=== PATIENT | female | born 1965 | race Caucasian/White ===

== ENCOUNTER 2017-02-16 11:43 | Emergency (ER) | payer OTHER ==
[~2017-02-16] VITALS: Ht 142.2 cm; Wt 62.1 kg
[~2017-02-16 11:43] MED LIST: ATARAX,VISTARIL50 MG PO; CITALOPRAM20 MG PO; COMBIVENT1 ARO IH; FERROUS SULFAT325 MG PO; MEDROL DOSEPAK4 MG PO; METHOCARBAMOL750 M1 PO; NATURE'S BLEND F1 MG PO; ONDANSETRON HYDR4 M1 PO; PERCOCET 325 MG1 TA2 PO; PRILOSEC20 MG PO; SEPTRA DS 800 M1 TAB PO; THERA TABS1 TAB PO; VITAMIN B-11 TAB PO; ZITHROMAX Z PA250 MG PO
[2017-02-16 12:07] LABS: BASO # 0.1 10*3/uL (0.0-0.1); BASO % 0.8 % (0.0-1.0); EOS # 0.4 10*3/uL (0.0-0.4); EOS % 4.5 % (1.0-4.0); HEMOGLOBIN 12.5 g/dl (12.0-16.0); LYMPH # 1.9 10*3/uL (1.3-4.4); LYMPH % 24.2 % (27.0-41.0); MEAN CELL VOLUME 84.6 fl (81.0-99.0); MEAN CORPUSCULAR HGB 27.8 pg (27.0-31.0); MEAN CORPUSCULAR HGB CONC 32.9 g/dl (33.0-37.0); MEAN PLATELET VOLUME 12.8 fl (9.6-12.3); MONO # 0.6 10*3/uL (0.1-1.0); MONO % 7.1 % (3.0-9.0); NEUT % 63.3 % (47.0-73.0); PLATELET COUNT AUTOMATED 214 10*3/uL (130-400); RED BLOOD COUNT 4.49 10*6/uL (4.10-5.10); RED CELL DISTRI WIDTH 13.1 % (0-14.5); WHITE BLOOD COUNT 7.9 10*3/uL (4.8-10.8)
[2017-02-16 12:21] LABS: BUN 13 mg/dl (7-24); CARBON DIOXIDE 28 mmol/L (21-32); CHLORIDE 102 mmol/L (98-107); EST GLOM FILT AFRICAN AMERICAN > 60 ml/min; GLUCOSE 89 mg/dL (65-99); POTASSIUM 4.1 mmol/L (3.5-5.1); SODIUM 139 mmol/L (136-145)
[2017-02-16 12:34] LABS: BILIRUBIN NEGATIVE (NEGATIVE); BLOOD TRACE-INTACT (NEGATIVE); CLARITY CLEAR (CLEAR); COLOR YELLOW (YELLOW); GLUCOSE NEGATIVE (NEGATIVE); KETONE NEGATIVE (NEGATIVE); LEUKO ESTERASE NEGATIVE (NEGATIVE); NITRITE NEGATIVE (NEGATIVE); PH 5.5 (5.0-9.0); PROTEIN NEGATIVE (NEGATIVE); UROBILINOGEN 0.2 E.U./dl (0.2-1.0)
[2017-02-16 12:48] LABS: BACTERIA TRACE; URINE REFLEX COMMENT NO (NO)
[2017-02-16 13:20] LABS: ALBUMIN 4.2 gm/dl (3.1-4.5); ALKALINE PHOSPHATASE 79 U/L (45-117); BILIRUBIN, DIRECT < 0.1 mg/dL (0.0-0.2); BILIRUBIN, TOTAL 0.4 mg/dl (0.2-1.0); SGOT/AST 13 IU/L (3-35); SGPT/ALT 24 U/L (12-78); TOTAL PROTEIN 7.7 gm/dL (6.4-8.2)
[2017-02-16] MEDS ORDERED: KETOROLAC10 MG PO (14:51)
== END 2017-02-16 14:46 | disposition home or self-care (01) ==
LOC: ED 11:43
PROVIDERS: Emergency Medicine; Registered Nurse
DX: R10.11 Right upper quadrant pain (principal); R11.0 Nausea; F12.10 Cannabis abuse, uncomplicated; Z88.0 Allergy status to penicillin; Z91.018 Allergy to other foods

== ENCOUNTER 2020-07-26 13:37 | Emergency (ER) | payer OTHER ==
[~2020-07-26] VITALS: Ht 152.4 cm; Wt 61.2 kg
[~2020-07-26 13:37] MED LIST changes: +KETOROLAC10 MG PO
[2020-07-26 14:06] LABS: BASO # 0.1 10*3/uL (0.0-0.1); EOS # 0.2 10*3/uL (0.0-0.4); EOS % 2.1 % (1.0-4.0); HEMATOCRIT 40.7 % (37.0-47.0); LYMPH % 24.7 % (27.0-41.0); MEAN CELL VOLUME 85.7 fl (81.0-99.0); MEAN CORPUSCULAR HGB 29.3 pg (27.0-31.0); MEAN CORPUSCULAR HGB CONC 34.2 g/dl (33.0-37.0); MEAN PLATELET VOLUME 11.9 fl (9.6-12.3); MONO # 0.8 10*3/uL (0.1-1.0); MONO % 10.1 % (3.0-9.0); NEUT % 60.9 % (47.0-73.0); PLATELET COUNT AUTOMATED 251 10*3/uL (130-400); RED BLOOD COUNT 4.75 10*6/uL (4.10-5.10); RED CELL DISTRI WIDTH 12.6 % (0-14.5); WHITE BLOOD COUNT 8.3 10*3/uL (4.8-10.8)
[2020-07-26 14:21] LABS: ALBUMIN 4.1 gm/dl (3.1-4.5); ALKALINE PHOSPHATASE 93 U/L (45-117); BUN 20 mg/dl (7-24); CHLORIDE 105 mmol/L (98-107); CREATININE 0.95 mg/dL (0.55-1.02); SGOT/AST 110 IU/L (3-35); SGPT/ALT 74 U/L (12-78); SODIUM 137 mmol/L (136-145); TOTAL PROTEIN 7.8 gm/dL (6.4-8.2)
[2020-07-26 14:29] LABS: ACETAMINOPHEN (TYLENOL) < 5.0 ug/ml (10-30); ETHYL ALCOHOL < 3.0 mg/dl (<3)
[2020-07-26 16:30] LABS: BILIRUBIN Negative (Negative); BLOOD Negative (Negative); CLARITY Clear (Clear); COLOR Yellow (Yellow); GLUCOSE Negative (Negative); KETONE 1+ (Negative); LEUKO ESTERASE 1+ (Negative); NITRITE Negative (Negative); PH 5.5 (4.5-8.0)
[2020-07-26 16:38] LABS: URINE AMPHETAMINES > 1000 (1000ng/ml); URINE BARBITURATES < 200 (200ng/ml); URINE BENZODIAZEPINES < 200 (200ng/ml); URINE CANNABINOIDS (THC) > 50 (50ng/ml); URINE COCAINE < 300 (300ng/ml); URINE METHADONE < 300 (300ng/ml); URINE OPIATES < 300 (300ng/ml)
[2020-07-26 16:39] LABS: URINE PHENCYCLIDINE < 25 (25ng/ml)
[2020-07-26 16:56] LABS: BACTERIA TRACE; EPITHELIAL CELLS 0-2; HYALINE CAST 0-2; MUCOUS 1+
[2020-07-28 05:47] LABS: CHLORIDE 115 mmol/L (98-107); CPK 903 U/L (26-192); CREATININE 0.66 mg/dL (0.55-1.02); POTASSIUM 3.5 mmol/L (3.5-5.1); SODIUM 144 mmol/L (136-145)
[2020-07-28 05:49] LABS: BUN 10 mg/dl (7-24)
--- NOTE | 2020-07-28 08:33 | NUR ---
TYLENOL 975MG PO GIVEN AT THIS TIME PER PT REQUEST FOR C/O HEADACHE RATED LEVEL 8/10. LIGHTS DIMMED. WILL MONITOR FOR EFFECT.
== END 2020-07-28 09:47 | disposition home or self-care (01) ==
LOC: ED 13:37
PROVIDERS: Internal Medicine; Physician Assistant
DX: F31.9 Bipolar disorder, unspecified (principal); F15.10 Other stimulant abuse, uncomplicated; F20.9 Schizophrenia, unspecified; F41.9 Anxiety disorder, unspecified; R44.1 Visual hallucinations; Z20.828 Contact with and (suspected) exposure to other viral communicable diseases; Z88.0 Allergy status to penicillin; Z91.018 Allergy to other foods; Z79.899 Other long term (current) drug therapy; Z98.51 Tubal ligation status

== ENCOUNTER 2021-07-18 12:41 | Inpatient (IN) | payer OTHER ==
[2021-07-18] VITALS (7 sets, daily range): BP systolic 80–127; BP diastolic 39–95
[~2021-07-18] VITALS: Ht 142.2 cm; Wt 60.4 kg
[2021-07-18 15:07] LABS: URINE AMPHETAMINES < 1000 (1000ng/ml); URINE BARBITURATES < 200 (200ng/ml); URINE BENZODIAZEPINES < 200 (200ng/ml); URINE CANNABINOIDS (THC) < 50 (50ng/ml); URINE COCAINE < 300 (300ng/ml); URINE METHADONE < 300 (300ng/ml); URINE OPIATES < 300 (300ng/ml)
[2021-07-18 15:11] LABS: URINE PHENCYCLIDINE < 25 (25ng/ml)
[2021-07-18 15:14] LABS: BASO # 0.1 10*3/uL (0.0-0.1); BASO % 0.7 % (0.0-1.0); EOS # 0.4 10*3/uL (0.0-0.4); HEMATOCRIT 41.6 % (37.0-47.0); LYMPH # 1.8 10*3/uL (1.3-4.4); LYMPH % 25.8 % (27.0-41.0); MEAN CELL VOLUME 88.9 fl (81.0-99.0); MEAN CORPUSCULAR HGB 29.3 pg (27.0-31.0); MEAN CORPUSCULAR HGB CONC 32.9 g/dl (33.0-37.0); MEAN PLATELET VOLUME 12.1 fl (9.6-12.3); MONO # 0.4 10*3/uL (0.1-1.0); MONO % 5.8 % (3.0-9.0); NEUT # 4.5 10*3/uL (2.3-7.9); NEUT % 62.6 % (47.0-73.0); PLATELET COUNT AUTOMATED 229 10*3/uL (130-400); RED BLOOD COUNT 4.68 10*6/uL (4.10-5.10); RED CELL DISTRI WIDTH 12.6 % (0-14.5); WHITE BLOOD COUNT 7.1 10*3/uL (4.8-10.8)
[2021-07-18 15:29] LABS: ACETAMINOPHEN (TYLENOL) < 5.0 ug/ml (10-30); ALBUMIN 4.1 gm/dl (3.1-4.5); ALKALINE PHOSPHATASE 95 U/L (45-117); BUN 19 mg/dl (7-24); CHLORIDE 108 mmol/L (98-107); CREATININE 1.43 mg/dL (0.55-1.02); ETHYL ALCOHOL < 3.0 mg/dl (<3); POTASSIUM 3.9 mmol/L (3.5-5.1); SGOT/AST 16 IU/L (3-35); SGPT/ALT 21 U/L (12-78); SODIUM 140 mmol/L (136-145)
[2021-07-19 02:09] VITALS: BP 127/65
[2021-07-19 08:00] VITALS: BP 120/76
[2021-07-19 12:00] VITALS: BP 126/72
[2021-07-19 15:56] VITALS: BP 112/87
[2021-07-19 20:00] VITALS: BP 107/72
[2021-07-20] VITALS: BP 146/73
[2021-07-20 06:51] LABS: BUN 17 mg/dl (7-24); CHLORIDE 109 mmol/L (98-107); CREATININE 0.99 mg/dL (0.55-1.02); POTASSIUM 4.3 mmol/L (3.5-5.1); SODIUM 142 mmol/L (136-145)
[2021-07-20 08:00] VITALS: BP 107/71
== END 2021-07-20 13:20 | DRG 775 ==
LOC: ED 12:41 → 4E 14:28 → EDHOLD 14:28 → 4E 23:45
PROVIDERS: Physician Assistant; Registered Nurse; ADMIT Internal Medicine; ATTEND Internal Medicine
DX: F10.239 Alcohol dependence with withdrawal, unspecified (principal); F43.10 Post-traumatic stress disorder, unspecified; F31.9 Bipolar disorder, unspecified; N17.0 Acute kidney failure with tubular necrosis; F17.210 Nicotine dependence, cigarettes, uncomplicated; Z82.49 Family history of ischemic heart disease and other diseases of the circulatory system; Z88.0 Allergy status to penicillin; Z88.8 Allergy status to other drugs, medicaments and biological substances

== ENCOUNTER 2025-01-19 10:00 | Inpatient (IN) | payer OTHER ==
[~2025-01-19] VITALS: Ht 142.2 cm; Wt 59.0 kg
[~2025-01-19 10:00] MED LIST changes: +MINIPRESS1 M1 PO; +MIRTAZAPINE15 M2 PO
[2025-01-19 10:35] VITALS: BP 156/92
[2025-01-19 11:00] LABS: BASO # 0.1 10*3/uL (0.0-0.1); BASO % 0.8 % (0.0-1.0); EOS # 0.3 10*3/uL (0.0-0.4); EOS % 3.7 % (1.0-4.0); HEMATOCRIT 43.9 % (37.0-47.0); MEAN CELL VOLUME 88.7 fl (81.0-99.0); MEAN CORPUSCULAR HGB 29.3 pg (27.0-31.0); MEAN PLATELET VOLUME 12.1 fl (9.6-12.3); MONO # 0.5 10*3/uL (0.1-1.0); MONO % 5.8 % (3.0-9.0); NEUT # 5.1 10*3/uL (2.3-7.9); PLATELET COUNT AUTOMATED 247 10*3/uL (130-400); RED BLOOD COUNT 4.95 10*6/uL (4.10-5.10); RED CELL DISTRI WIDTH 12.6 % (0-14.5); WHITE BLOOD COUNT 7.8 10*3/uL (4.8-10.8)
[2025-01-19 11:28] LABS: ALKALINE PHOSPHATASE 91 U/L (46-116); BUN 12 mg/dl (9-23); CHLORIDE 103 mmol/L (98-107); POTASSIUM 3.9 mmol/L (3.4-5.1); SGPT/ALT 13 U/L (5-49); TOTAL PROTEIN 7.7 gm/dL (6.0-8.0)
[2025-01-19 11:33] LABS: ETHYL ALCOHOL < 3.0 mg/dl (<3)
[2025-01-19 12:02] LABS: BILIRUBIN Negative (Negative); BLOOD Negative (Negative); CLARITY Cloudy (Clear); COLOR Yellow (Yellow); GLUCOSE Negative (Negative); KETONE 1+ (Negative); LEUKO ESTERASE 2+ (Negative); NITRITE Negative (Negative); PH 5.5 (4.5-8.0); SPECIFIC GRAVITY <= 1.005 (1.001-1.030); UROBILINOGEN 0.2 E.U./dl (0.0-1.0)
[2025-01-19 12:09] LABS: URINE AMPHETAMINES Positive (1000ng/ml); URINE BARBITURATES Negative (200ng/ml); URINE BENZODIAZEPINES Negative (200ng/ml); URINE CANNABINOIDS (THC) Negative (50ng/ml); URINE COCAINE Positive (300ng/ml); URINE METHADONE Negative (300ng/ml); URINE OPIATES Negative (300ng/ml); URINE PHENCYCLIDINE Negative (25ng/ml)
[2025-01-19] MEDS ORDERED: Magnesium Hydroxide 30 ML UDC PO PRN (16:00)
[2025-01-19] MEDS ORDERED: MG-AL HYDROXIDE/SIMETICONE 30 ML UDC PO PRN (16:00)
[2025-01-19] MEDS ORDERED: ACETAMINOPHEN 325 MG TAB PO PRN (16:00)
[2025-01-19] MEDS ORDERED: LORazepam 1 MG TAB PO PRN (16:10)
[2025-01-19] MEDS ORDERED: Ziprasidone Mesylate 20 MG VIAL IM PRN (16:10)
[2025-01-19] MEDS ORDERED: hydrOXYzine hydrochloride 50 MG/ML VIAL IM PRN (16:10)
[2025-01-19] MEDS ORDERED: Water, Sterile 10 ML VIAL IM PRN (16:15)
[2025-01-19 16:20] VITALS: BP 110/82
[2025-01-19] MEDS ORDERED: Mirtazapine 15 MG TAB PO SCH (21:00)
[2025-01-20 07:16] LABS: VITAMIN D, 25-HYDROXY 31.1 ng/mL (30-100)
[2025-01-20 08:00] VITALS: BP 122/75
[2025-01-20] MEDS ORDERED: ARIPiprazole 5 MG TAB PO SCH (09:00)
[2025-01-20] MEDS ORDERED: Cholecalciferol 2,000 UNIT TABLET (50 MCG) PO SCH (09:00)
[2025-01-20] MEDS ORDERED: Nicotine 14 MG PATCH T SCH (14:00)
[2025-01-20 20:00] VITALS: BP 125/90
[2025-01-21 08:24] VITALS: BP 99/45
[2025-01-21 20:00] VITALS: BP 100/84
[2025-01-22] MEDS ORDERED: ARIPiprazole 5 MG TAB PO SCH (09:00)
[2025-01-22 09:15] VITALS: BP 138/58
[2025-01-22 20:00] VITALS: BP 142/72
[2025-01-23 08:00] VITALS: BP 116/74
[2025-01-23 20:00] VITALS: BP 119/80
[2025-01-23] MEDS ORDERED: RAMELTEON 8 MG TAB PO SCH (21:00)
[2025-01-24 08:00] VITALS: BP 108/62
[2025-01-24 20:00] VITALS: BP 121/73
[2025-01-25 06:16] LABS: BASO # 0.1 10*3/uL (0.0-0.1); BASO % 1.4 % (0.0-1.0); EOS # 0.5 10*3/uL (0.0-0.4); MEAN CELL VOLUME 88.2 fl (81.0-99.0); MEAN CORPUSCULAR HGB 29.4 pg (27.0-31.0); MEAN CORPUSCULAR HGB CONC 33.3 g/dl (33.0-37.0); MEAN PLATELET VOLUME 11.9 fl (9.6-12.3); MONO # 0.4 10*3/uL (0.1-1.0); MONO % 6.7 % (3.0-9.0); NEUT # 3.2 10*3/uL (2.3-7.9); NEUT % 48.8 % (47.0-73.0); PLATELET COUNT AUTOMATED 198 10*3/uL (130-400); RED BLOOD COUNT 4.42 10*6/uL (4.10-5.10); RED CELL DISTRI WIDTH 12.5 % (0-14.5); WHITE BLOOD COUNT 6.6 10*3/uL (4.8-10.8)
[2025-01-25 06:51] LABS: ALKALINE PHOSPHATASE 73 U/L (46-116); BUN 17 mg/dl (9-23); CHLORIDE 105 mmol/L (98-107); POTASSIUM 4.3 mmol/L (3.4-5.1); SGPT/ALT 11 U/L (5-49); TOTAL PROTEIN 6.4 gm/dL (6.0-8.0)
[2025-01-25] MEDS ORDERED: ARIPiprazole 5 MG TAB PO SCH (09:00)
[2025-01-25 09:02] VITALS: BP 122/61
[2025-01-25 20:00] VITALS: BP 133/96
[2025-01-26 08:00] VITALS: BP 111/63
[2025-01-26] MEDS ORDERED: RAMELTEON8 MG PO (09:56)
[2025-01-26] MEDS ORDERED: VITAMIN D350 MCG PO (09:56)
[2025-01-26] MEDS ORDERED: ARIPIPRAZOLE5 MG PO (09:56)
== END 2025-01-26 13:39 | disposition home or self-care (01) | DRG 753 ==
LOC: ED 10:00 → EDHOLD 15:01 → 3N 15:01
PROVIDERS: Internal Medicine; Nurse Practitioner; ADMIT Psychiatry & Neurology Psychiatry; ATTEND Psychiatry & Neurology Psychiatry
PROC: GZHZZZZ Group Psychotherapy (ICD-10-PCS; principal; 2025-01-20)
PROC: GZ56ZZZ Individual Psychotherapy, Supportive (ICD-10-PCS; 2025-01-20)
DX: F31.9 Bipolar disorder, unspecified (principal); F22 Delusional disorders; F43.10 Post-traumatic stress disorder, unspecified; F20.9 Schizophrenia, unspecified; F17.210 Nicotine dependence, cigarettes, uncomplicated; F14.10 Cocaine abuse, uncomplicated; F12.10 Cannabis abuse, uncomplicated; F15.10 Other stimulant abuse, uncomplicated; Z88.0 Allergy status to penicillin; Z91.018 Allergy to other foods; Z79.899 Other long term (current) drug therapy; Z79.2 Long term (current) use of antibiotics; Z79.01 Long term (current) use of anticoagulants; Z82.49 Family history of ischemic heart disease and other diseases of the circulatory system; Z71.6 Tobacco abuse counseling; Z83.3 Family history of diabetes mellitus; Z80.0 Family history of malignant neoplasm of digestive organs

== ENCOUNTER 2025-02-17 07:01 | Emergency (ER) | payer OTHER ==
[~2025-02-17] VITALS: Ht 142.2 cm; Wt 59.9 kg
[~2025-02-17 07:01] MED LIST changes: +ARIPIPRAZOLE5 MG PO; +RAMELTEON8 MG PO; +VITAMIN D350 MCG PO
[2025-02-17 08:01] LABS: URINE AMPHETAMINES Positive (1000ng/ml); URINE BARBITURATES Negative (200ng/ml); URINE BENZODIAZEPINES Negative (200ng/ml); URINE CANNABINOIDS (THC) Negative (50ng/ml); URINE COCAINE Positive (300ng/ml); URINE METHADONE Negative (300ng/ml); URINE OPIATES Negative (300ng/ml); URINE PHENCYCLIDINE Negative (25ng/ml)
== END 2025-02-17 09:24 | disposition home or self-care (01) ==
LOC: ED 07:01
PROVIDERS: Emergency Medicine
DX: F19.159 Other psychoactive substance abuse with psychoactive substance-induced psychotic disorder, unspecified (principal); F32.3 Major depressive disorder, single episode, severe with psychotic features; F17.200 Nicotine dependence, unspecified, uncomplicated; Z88.0 Allergy status to penicillin; Z91.018 Allergy to other foods; Z79.899 Other long term (current) drug therapy

== ENCOUNTER 2025-05-23 15:45 | Emergency (ER) | payer OTHER ==
[~2025-05-23] VITALS: Wt 59.9 kg
[2025-05-23 16:24] LABS: BASO # 0.1 10*3/uL (0.0-0.1); BASO % 0.8 % (0.0-1.0); EOS # 0.1 10*3/uL (0.0-0.4); EOS % 1.0 % (1.0-4.0); MEAN CELL VOLUME 87.7 fl (81.0-99.0); MEAN CORPUSCULAR HGB 29.6 pg (27.0-31.0); MEAN PLATELET VOLUME 11.6 fl (9.6-12.3); MONO # 0.5 10*3/uL (0.1-1.0); MONO % 5.9 % (3.0-9.0); NEUT # 6.3 10*3/uL (2.3-7.9); NEUT % 72.0 % (47.0-73.0); NUCLEATED RED BLOOD CELL 0.0 % (0.0-0.0); NUCLEATED RED BLOOD CELL 0.0 10*3/uL (0.0-0.0); PLATELET COUNT AUTOMATED 263 10*3/uL (130-400); RED CELL DISTRI WIDTH 12.6 % (0-14.5)
[2025-05-23 17:10] LABS: BUN 10 mg/dl (9-23); SGPT/ALT 16 U/L (5-49)
[2025-05-23 17:12] LABS: BILIRUBIN Negative (Negative); BLOOD Negative (Negative); CLARITY Cloudy (Clear); COLOR Yellow (Yellow); KETONE 2+ (Negative); LEUKO ESTERASE 3+ (Negative); NITRITE Negative (Negative); PH 5.5 (4.5-8.0); SPECIFIC GRAVITY 1.020 (1.001-1.030); UROBILINOGEN 0.2 E.U./dl (0.0-1.0)
[2025-05-23 17:19] LABS: URINE AMPHETAMINES Positive (1000ng/ml); URINE BARBITURATES Negative (200ng/ml); URINE BENZODIAZEPINES Negative (200ng/ml); URINE CANNABINOIDS (THC) Negative (50ng/ml); URINE COCAINE Negative (300ng/ml); URINE METHADONE Negative (300ng/ml); URINE OPIATES Negative (300ng/ml); URINE PHENCYCLIDINE Negative (25ng/ml)
[2025-05-23 17:32] LABS: BACTERIA 4+; MUCOUS 2+; WBC 31-40 wbc/hpf (0-5)
[2025-05-23 17:42] LABS: CPK 148 U/L (34-171); ETHYL ALCOHOL < 3.0 mg/dl (<3)
[2025-05-23] MEDS ORDERED: Nitrofurantoin Monohydrate/N 100 MG CAP PO ONE (17:50)
[2025-05-23] MEDS ORDERED: MACROBID100 M1 PO (18:06)
[2025-05-23] MEDS ORDERED: LORazepam 1 MG TAB PO ONE ×2 (19:15→20:20)
== END 2025-05-24 01:16 ==
LOC: ED 15:45
PROVIDERS: Emergency Medicine
DX: F15.10 Other stimulant abuse, uncomplicated (principal); F29 Unspecified psychosis not due to a substance or known physiological condition; N39.0 Urinary tract infection, site not specified

== ENCOUNTER 2025-06-19 11:18 | Emergency (ER) | payer OTHER ==
[~2025-06-19] VITALS: Ht 142.2 cm; Wt 54.4 kg
[~2025-06-19 11:18] MED LIST changes: +MACROBID100 M1 PO
[2025-06-19] MEDS ORDERED: Ondansetron Hydrochloride 4 MG/2 ML VIAL IV ONE (11:40)
[2025-06-19] MEDS ORDERED: SODIUM CHLORIDE 0.9% 500 ML IV ONE (11:40)
[2025-06-19 11:53] LABS: BASO # 0.1 10*3/uL (0.0-0.1); BASO % 0.8 % (0.0-1.0); EOS # 0.1 10*3/uL (0.0-0.4); EOS % 1.2 % (1.0-4.0); MEAN CELL VOLUME 88.3 fl (81.0-99.0); MEAN CORPUSCULAR HGB 29.2 pg (27.0-31.0); MEAN PLATELET VOLUME 11.0 fl (9.6-12.3); MONO # 0.4 10*3/uL (0.1-1.0); MONO % 5.7 % (3.0-9.0); NEUT # 5.4 10*3/uL (2.3-7.9); NEUT % 73.0 % (47.0-73.0); NUCLEATED RED BLOOD CELL 0.0 % (0.0-0.0); NUCLEATED RED BLOOD CELL 0.0 10*3/uL (0.0-0.0); PLATELET COUNT AUTOMATED 252 10*3/uL (130-400); RED CELL DISTRI WIDTH 12.4 % (0-14.5)
[2025-06-19 11:59] LABS: BILIRUBIN Negative (Negative); BLOOD Negative (Negative); CLARITY Clear (Clear); COLOR Yellow (Yellow); KETONE Negative (Negative); LEUKO ESTERASE 3+ (Negative); NITRITE Negative (Negative); PH 6.5 (4.5-8.0); SPECIFIC GRAVITY <= 1.005 (1.001-1.030); UROBILINOGEN 0.2 E.U./dl (0.0-1.0)
[2025-06-19 12:12] LABS: BACTERIA 2+; WBC TNTC wbc/hpf (0-5)
[2025-06-19 12:16] LABS: URINE AMPHETAMINES Positive (1000ng/ml); URINE BARBITURATES Negative (200ng/ml); URINE BENZODIAZEPINES Negative (200ng/ml); URINE CANNABINOIDS (THC) Negative (50ng/ml); URINE COCAINE Positive (300ng/ml); URINE METHADONE Negative (300ng/ml); URINE OPIATES Negative (300ng/ml); URINE PHENCYCLIDINE Negative (25ng/ml)
[2025-06-19 12:23] LABS: BUN 8 mg/dl (9-23); ETHYL ALCOHOL < 3.0 mg/dl (<3); SGPT/ALT 12 U/L (5-49)
[2025-06-19] MEDS ORDERED: Meclizine25 MG PO (13:44)
[2025-06-19] MEDS ORDERED: Ondansetron4 MG PO (13:44)
== END 2025-06-19 13:49 | disposition home or self-care (01) ==
LOC: ED 11:18
PROVIDERS: Emergency Medicine
DX: N39.0 Urinary tract infection, site not specified (principal); F14.90 Cocaine use, unspecified, uncomplicated; F15.90 Other stimulant use, unspecified, uncomplicated; R42 Dizziness and giddiness; F17.290 Nicotine dependence, other tobacco product, uncomplicated; Z88.0 Allergy status to penicillin; Z91.018 Allergy to other foods; Z79.899 Other long term (current) drug therapy; X58.XXXA Exposure to other specified factors, initial encounter; Y93.89 Activity, other specified; Y92.89 Other specified places as the place of occurrence of the external cause; Y99.8 Other external cause status

== ENCOUNTER 2025-07-01 10:01 | Observation (INO) | payer OTHER ==
[~2025-07-01] VITALS: Ht 142.2 cm; Wt 55.3 kg
[~2025-07-01 10:01] MED LIST changes: +Meclizine25 MG PO; +Ondansetron4 MG PO
[2025-07-01 10:02] VITALS: BP 150/76
[2025-07-01] MEDS ORDERED: SODIUM CHLORIDE 0.9% 500 ML IV ONE (10:15)
[2025-07-01] MEDS ORDERED: ACETAMINOPHEN 325 MG TAB PO ONE (10:15)
[2025-07-01 10:32] LABS: BASO # 0.1 10*3/uL (0.0-0.1); BASO % 0.8 % (0.0-1.0); EOS # 0.1 10*3/uL (0.0-0.4); EOS % 0.9 % (1.0-4.0); MEAN CELL VOLUME 88.4 fl (81.0-99.0); MEAN CORPUSCULAR HGB 29.1 pg (27.0-31.0); MEAN PLATELET VOLUME 11.8 fl (9.6-12.3); MONO # 0.4 10*3/uL (0.1-1.0); MONO % 6.3 % (3.0-9.0); NEUT # 5.1 10*3/uL (2.3-7.9); NEUT % 77.6 % (47.0-73.0); NUCLEATED RED BLOOD CELL 0.0 % (0.0-0.0); NUCLEATED RED BLOOD CELL 0.0 10*3/uL (0.0-0.0); PLATELET COUNT AUTOMATED 210 10*3/uL (130-400); RED CELL DISTRI WIDTH 12.6 % (0-14.5)
[2025-07-01 10:47] LABS: BILIRUBIN Negative (Negative); BLOOD Negative (Negative); CLARITY Clear (Clear); COLOR Yellow (Yellow); KETONE 2+ (Negative); LEUKO ESTERASE 3+ (Negative); NITRITE Negative (Negative); PH 6.5 (4.5-8.0); SPECIFIC GRAVITY 1.015 (1.001-1.030); UROBILINOGEN 1.0 E.U./dl (0.0-1.0)
[2025-07-01 10:52] LABS: BUN 6 mg/dl (9-23)
[2025-07-01 10:53] LABS: URINE AMPHETAMINES Negative (1000ng/ml); URINE BARBITURATES Negative (200ng/ml); URINE BENZODIAZEPINES Negative (200ng/ml); URINE CANNABINOIDS (THC) Negative (50ng/ml); URINE COCAINE Negative (300ng/ml); URINE METHADONE Negative (300ng/ml); URINE OPIATES Negative (300ng/ml); URINE PHENCYCLIDINE Negative (25ng/ml)
[2025-07-01 11:04] LABS: ETHYL ALCOHOL < 3.0 mg/dl (<3)
[2025-07-01 11:05] LABS: BACTERIA 2+; WBC 31-40 wbc/hpf (0-5)
[2025-07-01 12:22] LABS: CPK 310.0 U/L (34-171)
[2025-07-01] MEDS ORDERED: HYDROXYZINE PAM50 MG PO (13:26)
[2025-07-01] MEDS ORDERED: RISPERIDONE1 MG PO (13:27)
[2025-07-01] MEDS ORDERED: TRAZODONE50 MG PO (13:28)
[2025-07-01] MEDS ORDERED: Ondansetron Hydrochloride 4 MG/2 ML VIAL IV PRN (14:15)
[2025-07-01] MEDS ORDERED: BISACODYL 5 MG TAB PO PRN (14:15)
[2025-07-01] MEDS ORDERED: ACETAMINOPHEN 325 MG TAB PO PRN (14:15)
[2025-07-01] MEDS ORDERED: BISACODYL 10 MG SUPP R PRN (14:15)
[2025-07-01] MEDS ORDERED: ACETAMINOPHEN 650 MG SUPP R PRN (14:15)
[2025-07-01 14:45] VITALS: BP 147/74
[2025-07-01 16:00] VITALS: BP 147/74
[2025-07-01 20:00] VITALS: BP 138/65
[2025-07-02] VITALS: BP 104/59; BP 130/60
[2025-07-02 06:15] LABS: BUN 5 mg/dl (9-23); FREE T4 1.12 ng/dl (0.89-1.76); LDL CHOLESTEROL 85 mg/dL (9-159); SGPT/ALT 12 U/L (5-49)
[2025-07-02 06:16] LABS: CPK 176 U/L (34-171)
[2025-07-02 06:18] LABS: BASO # 0.1 10*3/uL (0.0-0.1); BASO % 1.1 % (0.0-1.0); EOS # 0.2 10*3/uL (0.0-0.4); EOS % 4.0 % (1.0-4.0); MEAN CELL VOLUME 87.1 fl (81.0-99.0); MEAN CORPUSCULAR HGB 28.9 pg (27.0-31.0); MEAN PLATELET VOLUME 11.7 fl (9.6-12.3); MONO # 0.4 10*3/uL (0.1-1.0); MONO % 7.7 % (3.0-9.0); NEUT # 2.7 10*3/uL (2.3-7.9); NEUT % 59.4 % (47.0-73.0); NUCLEATED RED BLOOD CELL 0.0 % (0.0-0.0); NUCLEATED RED BLOOD CELL 0.0 10*3/uL (0.0-0.0); PLATELET COUNT AUTOMATED 213 10*3/uL (130-400); RED CELL DISTRI WIDTH 12.8 % (0-14.5)
[2025-07-02 06:25] LABS: ACT PARTIAL THROMBO TIME 26.1 SECONDS (20.0-32.1)
[2025-07-02 07:05] LABS: VITAMIN D, 25-HYDROXY 33.6 ng/mL (30-100)
[2025-07-02 08:00] VITALS: BP 129/51
[2025-07-02 12:00] VITALS: BP 120/60
== END 2025-07-02 13:24 ==
LOC: ED 10:01 → 4E 13:10 → EDHOLD 13:10 → 4E 14:03
PROVIDERS: Emergency Medicine; ADMIT Internal Medicine; ATTEND Internal Medicine
DX: R55 Syncope and collapse (principal); R26.81 Unsteadiness on feet; R42 Dizziness and giddiness; R25.1 Tremor, unspecified; F43.10 Post-traumatic stress disorder, unspecified; F32.9 Major depressive disorder, single episode, unspecified; Z79.899 Other long term (current) drug therapy; Z98.890 Other specified postprocedural states

== ENCOUNTER 2025-07-02 13:31 | Inpatient (IN) | payer OTHER ==
[~2025-07-02] VITALS: Ht 142.2 cm; Wt 51.9 kg
[~2025-07-02 13:31] MED LIST changes: +HYDROXYZINE PAM50 MG PO; +RISPERIDONE1 MG PO; +TRAZODONE50 MG PO
[2025-07-02 14:22] VITALS: BP 132/60
[2025-07-02] MEDS ORDERED: ACETAMINOPHEN 325 MG TAB PO PRN (14:30)
[2025-07-02] MEDS ORDERED: LORazepam 1 MG TAB PO PRN (14:30)
[2025-07-02] MEDS ORDERED: hydrOXYzine hydrochloride 50 MG/ML VIAL IM PRN (14:30)
[2025-07-02] MEDS ORDERED: MG-AL HYDROXIDE/SIMETICONE 30 ML UDC PO PRN (14:30)
[2025-07-02] MEDS ORDERED: Menthol/Zinc Oxide 4 GM THIN T PRN (14:35)
[2025-07-02 20:00] VITALS: BP 124/76
[2025-07-02] MEDS ORDERED: Trihexyphenidyl Hydrochlorid 2 MG TAB PO SCH (21:00)
[2025-07-02] MEDS ORDERED: Mirtazapine 15 MG TAB PO SCH (21:00)
[2025-07-02 21:30] LABS: BILIRUBIN Negative (Negative); BLOOD Negative (Negative); CLARITY Clear (Clear); COLOR Yellow (Yellow); KETONE Negative (Negative); LEUKO ESTERASE 3+ (Negative); NITRITE Negative (Negative); PH 6.5 (4.5-8.0); SPECIFIC GRAVITY 1.010 (1.001-1.030); UROBILINOGEN 0.2 E.U./dl (0.0-1.0)
[2025-07-02 21:39] LABS: BACTERIA 2+; WBC 51-100 wbc/hpf (0-5)
[2025-07-03 06:53] LABS: BASO # 0.0 10*3/uL (0.0-0.1); BASO % 0.6 % (0.0-1.0); EOS # 0.2 10*3/uL (0.0-0.4); EOS % 4.3 % (1.0-4.0); MEAN CELL VOLUME 87.6 fl (81.0-99.0); MEAN CORPUSCULAR HGB 29.1 pg (27.0-31.0); MEAN PLATELET VOLUME 11.3 fl (9.6-12.3); MONO # 0.4 10*3/uL (0.1-1.0); MONO % 8.5 % (3.0-9.0); NEUT # 2.7 10*3/uL (2.3-7.9); NEUT % 57.0 % (47.0-73.0); NUCLEATED RED BLOOD CELL 0.0 % (0.0-0.0); NUCLEATED RED BLOOD CELL 0.0 10*3/uL (0.0-0.0); PLATELET COUNT AUTOMATED 210 10*3/uL (130-400); RED CELL DISTRI WIDTH 12.8 % (0-14.5)
[2025-07-03 07:32] LABS: BUN 8 mg/dl (9-23); LDL CHOLESTEROL 89 mg/dL (9-159); SGPT/ALT 11 U/L (5-49)
[2025-07-03 07:48] LABS: VITAMIN D, 25-HYDROXY 29.9 ng/mL (30-100)
[2025-07-03 08:00] VITALS: BP 118/64
[2025-07-03 20:00] VITALS: BP 106/57
[2025-07-04 08:00] VITALS: BP 121/87
[2025-07-04] MEDS ORDERED: MED. FROM HOME 1 EACH EA PO SCH (09:00)
[2025-07-04] MEDS ORDERED: Vitamin D 400 IU TAB (10 MCG) PO SCH (10:00)
[2025-07-04 21:04] VITALS: BP 112/41
[2025-07-05 08:00] VITALS: BP 122/80
[2025-07-05 20:00] VITALS: BP 127/47
[2025-07-06 09:11] VITALS: BP 103/40
[2025-07-06 20:00] VITALS: BP 129/81
[2025-07-07] MEDS ORDERED: TRIHEXYPHENIDYL2 M3 PO (09:08)
[2025-07-07] MEDS ORDERED: HOMEMED PO (09:08)
== END 2025-07-07 09:52 | disposition home or self-care (01) | DRG 751 ==
LOC: 3N 13:31
PROVIDERS: ADMIT Psychiatry & Neurology Psychiatry; ATTEND Psychiatry & Neurology Psychiatry
PROC: GZHZZZZ Group Psychotherapy (ICD-10-PCS; principal; 2025-07-03)
PROC: GZ56ZZZ Individual Psychotherapy, Supportive (ICD-10-PCS; 2025-07-03)
DX: F33.2 Major depressive disorder, recurrent severe without psychotic features (principal); F25.9 Schizoaffective disorder, unspecified; R26.81 Unsteadiness on feet; F43.10 Post-traumatic stress disorder, unspecified; K29.70 Gastritis, unspecified, without bleeding; F12.10 Cannabis abuse, uncomplicated; F10.10 Alcohol abuse, uncomplicated; R42 Dizziness and giddiness; R55 Syncope and collapse; F14.90 Cocaine use, unspecified, uncomplicated; F17.200 Nicotine dependence, unspecified, uncomplicated; Z71.6 Tobacco abuse counseling; Z88.0 Allergy status to penicillin; Z88.8 Allergy status to other drugs, medicaments and biological substances; Y90.0 Blood alcohol level of less than 20 mg/100 ml